=== PATIENT | female | born 1940 | race Caucasian/White ===

== ENCOUNTER 2023-07-02 13:15 | Inpatient (IN) | payer OTHER ==
[2023-07-02] MEDS ORDERED: ACETAMINOPHEN 1000 MG/100 ML BAG IVPB ONE (13:39)
[2023-07-02] MEDS ORDERED: MAGNESIUM SULFATE IN WATER 2 GM/50 ML IVPB IVPB ONE (13:56)
[2023-07-02] MEDS ORDERED: DIPHTH,PERTUSS(ACELL),TET 0.5 ML DISP.SYRIN IM ONE ×2 (14:38→14:42)
[2023-07-02] MEDS ORDERED: morphine CARPU-JECT 2 MG/1 ML DISP.SYRIN IVPUSH ONE (14:42)
[2023-07-02] MEDS ORDERED: CEFAZOLIN 1 GM in DEXTROSE 5%-WATER - 50 ML IVPB ONE (14:42)
[2023-07-02] MEDS ORDERED: ceFAZolin SODIUM 1 GM VIAL ONE (15:18)
[2023-07-02 15:25] LABS: INR 1.02 (0.83-1.09); PROTHROMBIN TIME (PATIENT) 11.8 SEC (9.7-13.0)
[2023-07-02 15:27] LABS: ACTIVATED PTT 33.2 SECONDS (25.2-36.5)
[2023-07-02 15:36] LABS: CHLORIDE 104 mmol/L (98-107); SODIUM 135 mmol/L (136-145)
[2023-07-02 15:39] LABS: CALCIUM 9.1 mg/dL (8.5-10.1)
[2023-07-02 15:40] LABS: ALBUMIN 3.7 g/dl (3.4-5.0); BLOOD UREA NITROGEN 18.8 mg/dL (7-18); CO2 28 mmol/L (21-32); GLUCOSE,RANDOM 151 mg/dL (74-106)
[2023-07-02 15:43] LABS: SGOT/AST 69 U/L (15-37); SGPT/ALT 73 U/L (13-61)
[2023-07-02 15:45] LABS: BILIRUBIN,TOTAL 0.6 mg/dL (0.2-1); TOT PROT 7.8 g/dl (6.4-8.2)
[2023-07-02 15:46] LABS: ALK PHOS 101 U/L (45-117)
[2023-07-02 15:48] LABS: ANION GAP 4 mmol/L (4-13); POTASSIUM 6.6 mmol/L (3.5-5.1)
[2023-07-02] MEDS ORDERED: CALCIUM GLUCONATE 10% - 1,000 MG/10 ML VIAL IVPUSH ONE (16:38)
[2023-07-02] MEDS ORDERED: SODIUM ZIRCONIUM CYCLOSILICATE (LOKELMA) 5 GM PACKET PO ONE (16:40)
[2023-07-02] MEDS ORDERED: KETOROLAC TROMETHAMINE 15 MG/ML VIAL IM PRN (17:02)
[2023-07-02] MEDS ORDERED: ACETAMINOPHEN 500 MG TABLET (FP) PO PRN (17:03)
[2023-07-02 18:36] LABS: BASO % 0.6 % (0-2.0); EOS % 0.2 % (0-4.5); HEMATOCRIT 43.4 % (32.4-45.2); HEMOGLOBIN 14.5 GM/dL (10.7-15.3); LYMPH % 12.6 % (8-40); MCH 27.5 pg (25.7-33.7); MCHC 33.3 g/dl (32.0-36.0); MEAN CELL VOLUME 82.4 fl (80-96); MEAN PLT VOLUME 9.1 fl (7.5-11.1); MONO % 2.4 % (3.8-10.2); NEUT % 84.2 % (42.8-82.8); PLATELET COUNT 226 10^3/uL (134-434); RBC 5.27 M/mm3 (3.60-5.2); RDW 15.1 % (11.6-15.6); WHITE BLOOD COUNT 9.4 K/mm3 (4.0-10.0)
[2023-07-02 19:16] LABS: POTASSIUM 4.4 mmol/L (3.5-5.1)
[2023-07-02 19:17] LABS: CALCIUM 8.6 mg/dL (8.5-10.1)
[2023-07-02 19:21] LABS: CREATININE 0.8 mg/dL (0.55-1.3)
[2023-07-02] MEDS: ATORVASTATIN CA 20 MG TABLET (FP) PO SCH (22:55)
[2023-07-02] MEDS: QUEtiapine FUMARATE 25 MG TABLET PO SCH (22:55)
[2023-07-03 03:44] VITALS: BMI 21.9
[2023-07-03] MEDS: INSULIN SLIDING SCALE (NOVOLOG) 1 VIAL SQ SCH ×3 (07:35→17:00)
[2023-07-03] MEDS: FLUoxetine HCL 10 MG CAPSULE PO SCH (10:16)
[2023-07-03] MEDS: DONEPEZIL HCL 5 MG TABLET (FP) PO SCH (10:16)
[2023-07-03] MEDS: MEMANTINE HCL 5 MG TABLET (UD) PO SCH ×2 (10:16→22:09)
[2023-07-03] MEDS: KETOROLAC TROMETHAMINE 15 MG/ML VIAL IVPUSH PRN ×2 (11:43→22:09)
[2023-07-03] MEDS: ACETAMINOPHEN 500 MG TABLET (FP) PO SCH (17:03)
[2023-07-03] MEDS: ATORVASTATIN CA 20 MG TABLET (FP) PO SCH (22:08)
[2023-07-03] MEDS: QUEtiapine FUMARATE 25 MG TABLET PO SCH (22:08)
[2023-07-04] MEDS: ACETAMINOPHEN 500 MG TABLET (FP) PO SCH ×3 (01:23→17:35)
[2023-07-04] MEDS ORDERED: INSULIN (NOVOLOG) ASPART 100 UNITS/ML 10ML VIAL ONE (05:22)
[2023-07-04] MEDS: INSULIN SLIDING SCALE (NOVOLOG) 1 VIAL SQ SCH ×2 (06:02→17:22)
[2023-07-04 09:06] LABS: INR 1.05 (0.83-1.09); PROTHROMBIN TIME (PATIENT) 12.2 SEC (9.7-13.0)
[2023-07-04 09:07] LABS: BASO % 0.6 % (0-2.0); EOS % 0.7 % (0-4.5); HEMATOCRIT 43.1 % (32.4-45.2); HEMOGLOBIN 13.7 GM/dL (10.7-15.3); MCH 26.8 pg (25.7-33.7); MCHC 31.7 g/dl (32.0-36.0); MEAN CELL VOLUME 84.6 fl (80-96); MEAN PLT VOLUME 9.1 fl (7.5-11.1); NEUT % 59.7 % (42.8-82.8); PLATELET COUNT 192 10^3/uL (134-434); RBC 5.09 M/mm3 (3.60-5.2); RDW 15.1 % (11.6-15.6); WHITE BLOOD COUNT 5.8 K/mm3 (4.0-10.0)
[2023-07-04] MEDS: FLUoxetine HCL 10 MG CAPSULE PO SCH (09:30)
[2023-07-04] MEDS: DONEPEZIL HCL 5 MG TABLET (FP) PO SCH (09:30)
[2023-07-04] MEDS: MEMANTINE HCL 5 MG TABLET (UD) PO SCH ×2 (09:30→22:29)
[2023-07-04 09:41] LABS: POTASSIUM 4.1 mmol/L (3.5-5.1)
[2023-07-04 10:01] LABS: ALBUMIN 3.2 g/dl (3.4-5.0); BLOOD UREA NITROGEN 19.7 mg/dL (7-18); CALCIUM 8.4 mg/dL (8.5-10.1); MAGNESIUM 2.2 mg/dL (1.8-2.4)
[2023-07-04 10:04] LABS: CREATININE 0.8 mg/dL (0.55-1.3)
[2023-07-04 10:06] LABS: BILIRUBIN,TOTAL 1.1 mg/dL (0.2-1); TOT PROT 6.4 g/dl (6.4-8.2)
[2023-07-04] MEDS ORDERED: BUPIVACAINE HCL/PF 0.5% (5MG/ML) 10 ML VIAL ONE (12:06)
[2023-07-04] MEDS ORDERED: ceFAZolin SODIUM 1 GM VIAL IVPB ONE (12:35)
[2023-07-04] MEDS ORDERED: PROPOFOL 20 ML ONE (12:44)
[2023-07-04] MEDS ORDERED: ROCURONIUM BROMIDE 50 MG/5 ML SYRINGE ONE (14:03)
[2023-07-04] MEDS ORDERED: PROMETHAZINE HCL 25 MG/1 ML VIAL IVPB PRN (14:11)
[2023-07-04] MEDS: LACTATED RINGERS SOLUTION 1,000 ML IV SCH (14:15)
[2023-07-04] MEDS ORDERED: KETOROLAC TROMETHAMINE 15 MG/ML VIAL IVPUSH PRN (14:24)
[2023-07-04] MEDS ORDERED: QUEtiapine FUMARATE 25 MG TABLET PO SCH (22:00)
[2023-07-04] MEDS: ATORVASTATIN CA 20 MG TABLET (FP) PO SCH (22:28)
[2023-07-05] MEDS: ACETAMINOPHEN 500 MG TABLET (FP) PO SCH ×5 (00:22→23:17)
[2023-07-05] MEDS ORDERED: INSULIN (NOVOLOG) ASPART 100 UNITS/ML 10ML VIAL ONE (06:38)
[2023-07-05] MEDS: INSULIN SLIDING SCALE (NOVOLOG) 1 VIAL SQ SCH ×3 (06:41→17:25)
[2023-07-05] MEDS: DONEPEZIL HCL 5 MG TABLET (FP) PO SCH (09:39)
[2023-07-05] MEDS: FLUoxetine HCL 10 MG CAPSULE PO SCH (09:39)
[2023-07-05] MEDS: MEMANTINE HCL 5 MG TABLET (UD) PO SCH ×2 (09:39→21:49)
[2023-07-05] MEDS ORDERED: QUEtiapine FUMARATE 25 MG TABLET PO ONE (11:44)
[2023-07-05] MEDS: ATORVASTATIN CA 20 MG TABLET (FP) PO SCH (21:49)
[2023-07-05] MEDS: QUEtiapine FUMARATE 50 MG TABLET PO SCH (21:50)
[2023-07-06] MEDS: INSULIN SLIDING SCALE (NOVOLOG) 1 VIAL SQ SCH ×5 (06:19→17:11)
[2023-07-06] MEDS: ACETAMINOPHEN 500 MG TABLET (FP) PO SCH ×4 (07:02→17:12)
[2023-07-06] MEDS: LACTATED RINGERS SOLUTION 1,000 ML IV SCH (08:29)
[2023-07-06 09:32] LABS: BASO % 0.4 % (0-2.0); EOS % 0.4 % (0-4.5); HEMATOCRIT 40.3 % (32.4-45.2); HEMOGLOBIN 13.7 GM/dL (10.7-15.3); LYMPH % 22.5 % (8-40); MCH 27.8 pg (25.7-33.7); MCHC 33.9 g/dl (32.0-36.0); MEAN CELL VOLUME 81.9 fl (80-96); MEAN PLT VOLUME 8.7 fl (7.5-11.1); MONO % 8.3 % (3.8-10.2); NEUT % 68.4 % (42.8-82.8); PLATELET COUNT 220 10^3/uL (134-434); RBC 4.92 M/mm3 (3.60-5.2); RDW 14.9 % (11.6-15.6); WHITE BLOOD COUNT 7.4 K/mm3 (4.0-10.0)
[2023-07-06 09:56] LABS: POTASSIUM 3.8 mmol/L (3.5-5.1)
[2023-07-06] MEDS ORDERED: QUEtiapine FUMARATE 25 MG TABLET PO SCH (10:00)
[2023-07-06] MEDS: DONEPEZIL HCL 5 MG TABLET (FP) PO SCH (10:37)
[2023-07-06] MEDS: MEMANTINE HCL 5 MG TABLET (UD) PO SCH ×2 (10:37→22:27)
[2023-07-06 10:40] LABS: BLOOD UREA NITROGEN 18.2 mg/dL (7-18); MAGNESIUM 2.4 mg/dL (1.8-2.4)
[2023-07-06 10:41] LABS: CALCIUM 9.2 mg/dL (8.5-10.1)
[2023-07-06 10:42] LABS: TOT PROT 6.8 g/dl (6.4-8.2)
[2023-07-06 10:43] LABS: ALBUMIN 3.3 g/dl (3.4-5.0); CREATININE 0.7 mg/dL (0.55-1.3)
[2023-07-06] MEDS: FLUoxetine HCL 10 MG CAPSULE PO SCH (11:26)
[2023-07-06] MEDS ORDERED: traMADol HCL 50 MG TABLET PO PRN (13:31)
[2023-07-06 15:18] VITALS: RESP 20
[2023-07-06] MEDS: QUEtiapine FUMARATE 50 MG TABLET PO SCH (22:27)
[2023-07-06] MEDS: ATORVASTATIN CA 20 MG TABLET (FP) PO SCH (22:27)
[2023-07-06 22:28] VITALS: BP 130/77; PULSE 83; TEMP 97.9
== END 2023-07-06 23:00 | DRG 488 ==
LOC: JER 13:15 → JERBED 16:16 → J8W 20:02
PROVIDERS: ADMIT Internal Medicine; ATTEND Nurse Practitioner Acute Care
PROC: 0QQF0ZZ Repair Left Patella, Open Approach (ICD-10-PCS; 2023-07-04)
PROC: 0QSF04Z Reposition Left Patella with Internal Fixation Device, Open Approach (ICD-10-PCS; principal; 2023-07-04 12:00)
DX: S82.002A Unspecified fracture of left patella, initial encounter for closed fracture (principal); G93.41 Metabolic encephalopathy; E11.9 Type 2 diabetes mellitus without complications; E78.5 Hyperlipidemia, unspecified; G30.9 Alzheimer's disease, unspecified; F02.80 Dementia in other diseases classified elsewhere, unspecified severity, without behavioral disturbance, psychotic disturbance, mood disturbance, and anxiety; S80.02XA Contusion of left knee, initial encounter; W19.XXXA Unspecified fall, initial encounter; Y93.89 Activity, other specified; Y92.89 Other specified places as the place of occurrence of the external cause; Y99.8 Other external cause status; Z79.84 Long term (current) use of oral hypoglycemic drugs
CPT/HCPCS: 36415; 70450-TC; 71045-TC-FY; 72125-TC; 72170-TC-FY; 73552-TC-LT-FY; 73562-TC-LT-FY; 73590-TC-LT-FY; 76000-TC-FY; 80048; 80053; 82962; 83036; 83735; 84439; 84443; 84484; 85025; 85610; 85730; 86850; 86900; 86901; 87635; 90715; 93005; 93010; 93306-TC; 94760; 97116-GP; 97161-GP; 99285-25; C1713